=== PATIENT | female | born 1980 | race African-American/Black ===

== ENCOUNTER → 2021-12-06 | Outpatient (CLI) | payer BC ==
[2016-12-23 02:44] VITALS: BP 108/63
[~2021-12-06] MED LIST: BUPIVACAINE MPF 0.25% 10 ML VIAL. ONE; IOHEXOL 300 MG/ML 50 ML VIAL. ONE; LIDOCAINE 1% PF 30 ML VIAL. ONE; MULT-18 PO; SULF1TAB24 PO; methylPREDNISolone ACETATE 80 MG/ML VIAL. ONE
--- NOTE | 2021-12-07 14:14 | RAD ---
BILATERAL SCREENING MAMMOGRAM History: Routine screening. Comparison: Screening mammogram 03/12/2019; left breast diagnostic mammogram 01/24/2019; bilateral diag nostic mammogram 04/29/2020. Technique: Routine 2D digital mammogram views were obtained bilaterally. Interpretation was assisted with the use of computer-aided detection. Findings: Breast Tissue Density C : The breasts are heterogeneously dense, which may obscure small masses. There are no dominant masses, suspicious microcalcifications, or architectural distortion. IMPRESSION: No mammographic evidence of malignancy. Recommend routine screening mammography in one year. BI-RADS category 1: Negative. Patient information is entered into the reminder system with a target due date for the next screening mammogram. "Our facility is accredited by the [employer] Mammography [employer]." Electronically signed by: DEV DICKENS MD (12/07/2021 2:12 PM) [id number]
== END ==
LOC: MAMMO 10:58
PROVIDERS: ATTEND Family Medicine
DX: Z12.31 Encounter for screening mammogram for malignant neoplasm of breast (principal)
CPT/HCPCS: 77067